=== PATIENT | female | born 1975 | race Caucasian/White ===

== ENCOUNTER 2021-04-24 19:00 | Emergency (ER) | payer BC ==
--- NOTE | 2021-04-24 19:50 | EDM.PDOC ---
ED HPI GENERAL MEDICAL PROBLEM - General Chief Complaint: Fever Stated Complaint: BODY ACHES/FEVER/COUGH Time Seen by Provider: 04/24/21 19:21 Source of Information: Reports: Patient History Limitations: Reports: No Limitations - History of Present Illness INITIAL COMMENTS - FREE TEXT/NARRATIVE: Ms. Tran is a very pleasant 45-year-old woman who now presents the ED stating that she developed generalized body aches, feeling feverish, a nonproductive cough with dyspnea and wheezing, and nausea and vomiting yesterday, 04/23/2021. She took some DayQuil yesterday, which did not help. She has also taken some acetaminophen. Here in the ED, the patient's initial BP is found to be slightly depressed at 113/59, with tachycardia of 111 bpm and slight tachypnea of 24 rpm. She is afebrile, saturating 95% on room air. She appears to be somewhat anxious, but in no acute distress. Prior to yesterday, the patient denies having a recent fever, chills, sore throat, ear pain, nasal or sinus congestion, cough, dyspnea, chest pain, palpitations, nausea, vomiting, constipation, diarrhea, abdominal pain, urinary symptoms, recent weight gain or weight loss, recent bloody bowel movements or black bowel movements, recent joint aches, headaches, or rashes. The patient's PCP is Dr. Juliocesar Balderas, [facility]. She does not recall the name of her pain specialist at [facility]. She has not received a COVID vaccination. Generalized Pain Score (Numeric/FACES): 8 - Related Data Allergies Allergy/AdvReac Type Severity Reaction Status Date / Time latex Allergy Rash Verified 04/24/21 19:17 meperidine [From Demerol] Allergy Hives Verified 04/24/21 19:17 morphine Allergy Hives Verified 04/24/21 19:17 Sulfa (Sulfonamide Allergy Abdominal Verified 04/24/21 19:17 Antibiotics) Cramps Home Meds: Home Meds Albuterol Sulfate [Albuterol Sulfate HFA] 2 puff INH Q4H PRN 04/24/21 [History] DULoxetine [Cymbalta] 60 mg PO DAILY 04/24/21 [History] PARoxetine HCL [Paroxetine HCl] 40 mg PO DAILY 04/24/21 [History] Topiramate 50 mg PO BID 04/24/21 [History] Past Medical History HEENT History: Reports: Allergic Rhinitis Respiratory History: Reports: Asthma (suspected, not PFT-tested) Genitourinary History: Reports: Urinary Incontinence (stress incontinence) 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: Endometriosis (laparoscopy-confirmed), Polycystic Ovaries Musculoskeletal History: Reports: Back Pain, Chronic (DDD), Osteoarthritis (spine) Neurological History: Reports: Migraines Psychiatric History: Reports: Anxiety, Depression Endocrine/Metabolic History: Reports: Obesity/BMI 30+ - Past Surgical History HEENT Surgical History: Reports: Adenoidectomy, Oral Surgery (dental extractions), Tonsillectomy GI Surgical History: Reports: Appendectomy, Bariatric Procedure (gastric bypass around 2005), Cholecystectomy (2006), Colonoscopy (x 2), EGD (x 2) Female Surgical History: Reports: Hysterectomy (complete), Other (See Below) (Myomectomy x 4. Exploratory laparoscopy x 5 or 6. Hysteroscopy x 2.) Neurological Surgical History: Reports: Lumbar Spine (L3-5 fusion) Social & Family History - Tobacco Use Tobacco Use Status *Q: Never Tobacco User - Alcohol Use Alcohol Use History: Yes Alcohol Use Frequency: Socially - Recreational Drug Use Recreational Drug Use: No - Living Situation & Occupation Living situation: Reports: , with Significant Other (Boyfriend) Occupation: Employed ([employer]) ED ROS GENERAL - Review of Systems Review Of Systems: Comprehensive ROS is negative, except as noted in HPI. ED EXAM, GENERAL - Physical Exam Exam: See Below Exam Limited By: No Limitations General Appearance: Alert, WD/WN, No Apparent Distress Eye Exam: Bilateral Eye: EOMI, Normal Inspection Ears: Normal External Exam, Hearing Grossly Normal Nose: Normal Inspection Throat/Mouth: Normal Inspection, Normal Lips, Normal Voice, No Airway Compromise Head: Atraumatic, Normocephalic Neck: Normal Inspection, Full Range of Motion Respiratory/Chest: No Respiratory Distress, Lungs Clear, Normal Breath Sounds, No Accessory Muscle Use. No: Decreased Breath Sounds, Crackles, Rhonchi, Wheezing, Stridor, Prolonged Expiration Cardiovascular: Normal Peripheral Pulses, Regular Rate, Rhythm, No Gallop, No JVD, No Murmur, No Rub Peripheral Pulses: 3+: Radial (L), Radial (R) GI/Abdominal: Normal Bowel Sounds, Soft, Non-Tender, No Organomegaly, No Distention, No Abnormal Bruit, No Mass Back Exam: Normal Inspection, Full Range of Motion, NT Extremities: Normal Inspection, Normal Range of Motion, Normal Capillary Refill Neurological: Alert, Oriented, Normal Cognition, No Motor/Sensory Deficits Psychiatric: Normal Affect Skin Exam: Warm, Dry, Intact, Normal Color, No Rash Course - Vital Signs Last Recorded V/S: Last Vital Signs Temp 37.7 C 04/24/21 19:15 Pulse 100 04/25/21 01:23 Resp 16 04/25/21 01:23 BP 123/83 04/25/21 00:00 Pulse Ox 92 L 04/25/21 01:23 - Orders/Labs/Meds Orders: Active Orders 24 hr Category Date Time Status Chest 2V [CR] Stat Exams 04/24/21 19:44 Taken BLOOD CULTURE [MREF] Stat Lab 04/24/21 20:10 Received BLOOD CULTURE [MREF] Stat Lab 04/24/21 20:20 Received Blood Culture x2 Reflex Set [OM.PC] Stat Oth 04/24/21 19:47 Ordered Labs: Laboratory Tests 04/24/21 04/24/21 04/24/21 Range/Units 19:30 19:30 19:30 WBC 4.28 (3.98-10.04) K/mm3 RBC 5.01 (3.98-5.22) M/mm3 Hgb 13.2 (11.2-15.7) gm/dl Hct 41.6 (34.1-44.9) % MCV 83.0 (79.4-94.8) fl MCH 26.3 (25.6-32.2) pg MCHC 31.7 L (32.2-35.5) g/dl RDW Std Deviation 48.2 H (36.4-46.3) fL Plt Count 272 (182-369) K/mm3 MPV 10.0 (9.4-12.3) fl Neutrophils % (Manual) 64 H (40-60) % Band Neutrophils % 0 (0-10) % Lymphocytes % (Manual) 30 (20-40) % Atypical Lymphs % 0 % Monocytes % (Manual) 6 (2-10) % Eosinophils % (Manual) 0 L (0.7-5.8) % Basophils % (Manual) 0 L (0.1-1.2) Platelet Estimate Adequate RBC Morph Comment Normal D-Dimer, Quantitative (0.19-0.50) mg/L Sodium 140 (136-145) mEq/L Potassium 4.0 (3.5-5.1) mEq/L Chloride 106 (98-107) mEq/L Carbon Dioxide 23 (21-32) mEq/L Anion Gap 15.0 (5-15) BUN 14 (7-18) mg/dL Creatinine 0.8 (0.55-1.02) mg/dL Est Cr Clr Drug Dosing 68.42 mL/min Estimated GFR (MDRD) > 60 (>60) mL/min BUN/Creatinine Ratio 17.5 (14-18) Glucose 100 H (70-99) mg/dL Lactic Acid 0.9 (0.4-2.0) mmol/L Calcium 7.8 L (8.5-10.1) mg/dL Magnesium 1.8 (1.8-2.4) mg/dL Ferritin (8-252) ng/ml Total Bilirubin 0.2 (0.2-1.0) mg/dL AST 37 (15-37) U/L ALT 28 (14-59) U/L Alkaline Phosphatase 80 (46-116) U/L C-Reactive Protein 3.0 H* (<1.0) mg/dL Total Protein 7.2 (6.4-8.2) g/dl Albumin 3.4 (3.4-5.0) g/dl Globulin 3.8 gm/dL Albumin/Globulin Ratio 0.9 L (1-2) SARS-CoV-2 RNA (KENDAL) (NEGATIVE) 04/24/21 04/24/21 04/24/21 Range/Units 19:30 19:30 20:05 WBC (3.98-10.04) K/mm3 RBC (3.98-5.22) M/mm3 Hgb (11.2-15.7) gm/dl Hct (34.1-44.9) % MCV (79.4-94.8) fl MCH (25.6-32.2) pg MCHC (32.2-35.5) g/dl RDW Std Deviation (36.4-46.3) fL Plt Count (182-369) K/mm3 MPV (9.4-12.3) fl Neutrophils % (Manual) (40-60) % Band Neutrophils % (0-10) % Lymphocytes % (Manual) (20-40) % Atypical Lymphs % % Monocytes % (Manual) (2-10) % Eosinophils % (Manual) (0.7-5.8) % Basophils % (Manual) (0.1-1.2) Platelet Estimate RBC Morph Comment D-Dimer, Quantitative 0.46 (0.19-0.50) mg/L Sodium (136-145) mEq/L Potassium (3.5-5.1) mEq/L Chloride (98-107) mEq/L Carbon Dioxide (21-32) mEq/L Anion Gap (5-15) BUN (7-18) mg/dL Creatinine (0.55-1.02) mg/dL Est Cr Clr Drug Dosing mL/min Estimated GFR (MDRD) (>60) mL/min BUN/Creatinine Ratio (14-18) Glucose (70-99) mg/dL Lactic Acid (0.4-2.0) mmol/L Calcium (8.5-10.1) mg/dL Magnesium (1.8-2.4) mg/dL Ferritin 52 (8-252) ng/ml Total Bilirubin (0.2-1.0) mg/dL AST (15-37) U/L ALT (14-59) U/L Alkaline Phosphatase (46-116) U/L C-Reactive Protein (<1.0) mg/dL Total Protein (6.4-8.2) g/dl Albumin (3.4-5.0) g/dl Globulin gm/dL Albumin/Globulin Ratio (1-2) SARS-CoV-2 RNA (KENDAL) Positive H (NEGATIVE) Meds: Medications Discontinued Medications Generic Name Dose Route Start Last Admin Trade Name Freq PRN Reason Stop Dose Admin Diphenhydramine HCl 50 mg 04/24/21 22:37 Diphenhydramine 50 Mg/Ml Sdv IVPUSH ONETIME PRN hypersensitivity reaction Epinephrine HCl 0.3 mg 04/24/21 22:37 Epinephrine 1 Mg/Ml Sdv IM ONETIME PRN hypersensitivity reaction Famotidine 20 mg 04/24/21 22:37 Famotidine 20 Mg/2 Ml Sdv IVPUSH ONETIME PRN hypersensitivity reaction CASIRIVIMAB/IMDEVIMAB 10 ml/ 110 mls @ 220 mls/hr 04/24/21 22:37 04/24/21 23:13 Sodium Chloride IV 04/24/21 23:06 220 mls/hr ONETIME ONE Administration Methylprednisolone Sodium Succinate 125 mg 04/24/21 22:37 Methylprednisolone Sodium Succinate 125 Mg/2 Ml Sdv IVPUSH ONETIME PRN hypersensitivity reaction Sodium Chloride 30 ml 04/24/21 22:45 Sodium Chloride 0.9% 10 Ml Syringe FLUSH ASDIRECTED BLAINE - Re-Assessments/Exams Free Text/Narrative Re-Assessment/Exam: 04/24/21 19:47 As above, the patient developed generalized body aches, feeling feverish, a nonproductive cough with dyspnea, the sensation that she is wheezing, and nausea vomiting, yesterday. DayQuil has not helped. She is tachycardic and slightly tachypneic, with an oxygen saturation of 95% on room air. Her physical exam is grossly unremarkable, including clear lungs without wheezes, although taking a deep breath induces a cough. I have ordered a work-up that includes numerous blood tests, 2 sets of blood cultures, a urinalysis, a swab for the SARS-CoV-2 virus, and a chest x-ray. 04/24/21 22:11 Two-view chest radiograph reviewed. The cardiac silhouette is within normal limits. No pulmonary vascular congestion. No pleural effusions. There are bilateral hazy infiltrates, worse on the right than the left, consistent with COVID-19. No pneumothorax. Formal read per the Radiologist pending. The patient's CBC is unremarkable. Her CMP is remarkable for a blood glucose at the upper limits of normal at 100, and is otherwise unremarkable. Her magnesium level is within normal limits at 1.8. Her lactic acid level is within normal limits at 0.9. Her CRP is modestly elevated at 3.0. Her ferritin is within normal limits at 52. Her D-dimer is within normal limits at 0.46. Her swab for the SARS-CoV-2 virus is positive. The patient has not yet provided a urine sample for urinalysis. 04/24/21 22:30 Based on the patient's BMI, she is a candidate for an infusion of the monoclonal antibody Regen-Cov. We discussed that at length, including that it is an emergency use authorization medication, intended to decrease the likelihood of patients diagnosed with COVID-19 developing severe symptoms or , and that it does not treat her current symptoms. I explained that Regen-Cov is still under investigation, that it is not fully FDA approved, and that the potential benefits and risks of the medication are not fully known. The patient was notified that if she receives Regen-Cov, that it may decrease her immune response to a COVID vaccination, should she decide to get it after she recovers from her current illness. I explained that there is a possibility that she could have an allergic reaction either during or after the infusion, as well as brief pain, bleeding, bruising of the skin, soreness, swelling, and possible infection at the infusion site. Other side effects could occur. I discussed that there are other potential treatment options that are currently not FDA approved to treat COVID-19. The patient was notified that the infusion takes about 1 hour, after which she would be expected to remain in the ED for another hour to observe for possible side effects. She was offered the "patient and caregiver IVAN Regen-Cov fact sheet" to read and review. All questions were answered. The patient expressed understanding, and would like to proceed with the infusion. 04/25/21 01:05 Notified by Christos DIOP that the patient's infusion finished about an hour ago, that she is now ready to go home. Departure - Departure Time of Disposition: 01:05 Disposition: Home, Self-Care 01 Condition: Good Clinical Impression: COVID-19 - Discharge Information *PRESCRIPTION DRUG MONITORING PROGRAM REVIEWED*: Not Applicable *COPY OF PRESCRIPTION DRUG MONITORING REPORT IN PATIENT ASHTYN: Not Applicable Instructions: COVID-19, 10 Things You Can Do to Manage Your COVID-19 Symptoms at Home - CDC Referrals: Juliocesar Balderas MD [Primary Care Provider] - Forms: ED Department Discharge, ED Return to Work/School Form Additional Instructions: You were seen in the emergency room after developing generalized body aches, feeling feverish, a dry cough with shortness of breath and wheezing, and nausea and vomiting yesterday. Work-up in the ER included numerous blood tests, 2 sets of blood cultures, a swab for the SARS-CoV-2 virus, and a chest x-ray. Your swab for the SARS-CoV-2 virus returned positive, indicating that you have COVID-19. Your chest x-ray showed subtle changes consistent with COVID-19. The remainder of your work-up was unremarkable. You were treated with an infusion of the monoclonal antibodies Regen-Cov. As discussed, this medicine is intended to reduce the likelihood of your developing severe symptoms or associated with COVID-19, and is not intended to treat your current symptoms. We recommend you take [id number] Tylenol or ibuprofen as needed for discomfort. As discussed, it is imperative that you strictly isolate for 10 days, and it is important that you get retested and confirm that you were negative before you break isolation. A note to be off work through 05/05/2021 has been provided to you. If any other problems, please do not hesitate to return to the ER. Sepsis Event Note (ED) - Evaluation Sepsis Screening Result: No Definite Risk - Focused Exam Vital Signs: Vital Signs Temp Pulse Resp BP Pulse Ox 04/25/21 01:23 100 16 92 L 04/25/21 00:00 102 H 22 H 123/83 92 L 04/24/21 23:45 104 H 18 118/83 92 L 04/24/21 23:13 102 H 23 H 132/76 94 L 04/24/21 19:15 37.7 C 111 H 24 H 113/59 L 95 - My Orders Last 24 Hours: My Active Orders 04/24/21 19:44 Chest 2V [CR] Stat 04/24/21 19:47 Blood Culture x2 Reflex Set [OM.PC] Stat 04/24/21 20:10 BLOOD CULTURE [MREF] Stat 04/24/21 20:20 BLOOD CULTURE [MREF] Stat - Assessment/Plan Last 24 Hours: My Active Orders 04/24/21 19:44 Chest 2V [CR] Stat 04/24/21 19:47 Blood Culture x2 Reflex Set [OM.PC] Stat 04/24/21 20:10 BLOOD CULTURE [MREF] Stat 04/24/21 20:20 BLOOD CULTURE [MREF] Stat
[2021-04-24] MEDS ORDERED: diphenhydrAMINE 50 MG/ML SDV IVPUSH PRN (22:37)
[2021-04-24] MEDS ORDERED: methylPREDNISolone Sodium Succinate 125 MG/2 ML SDV IVPUSH PRN (22:37)
[2021-04-24] MEDS ORDERED: EPINEPHrine 1 MG/ML SDV IM PRN (22:37)
[2021-04-24] MEDS ORDERED: Famotidine 20 MG/2 ML SDV IVPUSH PRN (22:37)
[2021-04-24] MEDS ORDERED: Sodium Chloride 0.9% 10 ML Syringe FLUSH SCH (22:45)
--- NOTE | 2021-04-25 09:16 | CR ---
Chest: 2 views of the chest were obtained. Comparison: No previous study is available. Patchy areas of increased density are noted throughout both sides of the chest. Heart size and mediastinum are normal. Minimal scoliosis is noted. Surgical clips are seen within the upper abdomen. Impression: 1. Patchy areas of increased density on both sides of the chest. Findings presumably represent pneumonia. Please rule out COVID infection. Diagnostic code #3
== END 2021-04-25 01:15 | disposition home or self-care (01) ==
LOC: JD.ED 19:00
DX: U07.1 COVID-19 (principal); R79.82 Elevated C-reactive protein (CRP); M19.90 Unspecified osteoarthritis, unspecified site; E66.9 Obesity, unspecified; Z68.41 Body mass index [BMI] 40.0-44.9, adult; Z91.040 Latex allergy status; Z88.5 Allergy status to narcotic agent; Z88.2 Allergy status to sulfonamides; Z79.899 Other long term (current) drug therapy
CPT/HCPCS: 36415; 71046; 80053; 82728; 83605; 83735; 85007; 85027; 85379; 86140; 87040; 87635; 99283; M0243; Q0243; 99284; U0002